=== PATIENT | male | born 1990 | race Caucasian/White ===

== ENCOUNTER 2018-07-04 02:43 | Emergency (ER) | payer OTHER ==
[~2018-07-04] VITALS: Ht 182.9 cm; Wt 90.7 kg
[2018-07-04 02:49] VITALS: BP 108/56; Ht 182.9 cm; Wt 90.7 kg
== END 2018-07-04 03:20 | disposition other institution (70) ==
LOC: ED 02:43
DX: Z02.89 Encounter for other administrative examinations (principal)